=== PATIENT | male | born 1965 | race Caucasian/White ===

== ENCOUNTER 2018-01-22 07:28 | Emergency (ER) | payer OTHER ==
[~2018-01-22] VITALS: Ht 177.8 cm; Wt 83.9 kg
[2018-01-22 07:54] VITALS: BP 140/75
--- NOTE | 2018-01-22 07:58 | Emergency Room Report ---
History of Present Illness General Chief Complaint: Chest Pain Source: Patient, Medical Record Present Illness HPI Patient sense with complaints of vomiting Reports that he saw tinges of bright blood or the past several days also felt that he had dark stool Patient reports that he was at [facility] yesterday And blood work looked normal Patient reports that he has severe anxiety as well and after seeing the blood he becomes very anxious gets sweaty palms Patient reports that 2-3 weeks ago he had upper and lower endoscopy and colonoscopy He is still awaiting the results of those Does report of chest pain however the patient reports that maybe his epigastric discomfort and also the discomfort with vomiting denies any chest pain at this time Allergies: Coded Allergies: ATORVASTATIN (Verified Allergy, Unknown, 01/22/18) Patient History Past Medical History: see triage record Pertinent Family History: none Reviewed Nursing Documentation: PMH: Agreed; PSxH: Agreed Nursing Documentation-PMH Past Medical History: No History, Except For Hx Cardiac Problems: Yes - valve prolapse, low ejection fraction Hx Hypertension: Yes Hx COPD: Yes Hx Gastrointestinal Problems: Yes - GERD Review of Systems All Other Systems: negative except mentioned in HPI Physical Exam Vital Signs Date Time Temp Pulse Resp B/P (MAP) Pulse Ox O2 Delivery O2 Flow Rate FiO2 01/22/18 07:25 97.5 84 14 130/76 100 Room Air Sp02 EP Interpretation: reviewed, normal General Appearance: well appearing, no apparent distress Head: normocephalic, atraumatic Eyes: bilateral eye PERRL, bilateral eye EOMI ENT: hearing grossly normal, normal pharynx, TMs + canals normal, uvula midline Neck: full range of motion, supple, no meningismus, no bony tend Respiratory: lungs clear, normal breath sounds, no rhonchi, no respiratory distress, no retraction, no accessory muscle use Cardiovascular #1: normal peripheral pulses, regular rate, rhythm, no edema, no gallop, no JVD, no murmur Gastrointestinal: normal bowel sounds, non tender, soft, no mass, no organomegaly, non-distended, no guarding, no hernia, no pulsatile mass, no rebound Genitourinary: no CVA tenderness Musculoskeletal: normal inspection Neurologic: oriented x3, responsive, 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, motor strength/ tone normal, sensory intact Psychiatric: mood/affect normal Skin: normal color, no rash, warm/dry, palpation normal Lymphatic: normal inspection, no adenopathy Medical Decision Making Diagnostic Impression: Primary Impression: Chest pain ER Course Patient is a fairly complex patient with multiple differential to consideration including but not limited to cardiac cardiopulmonary and vascular emergencies Patient's complaints regarding vomiting also traces of blood are also concerning Patient's blood work here reveals appropriate hemoglobin count there has been no active signs of hemorrhage or bleeding Patient was encouraged highly to follow up with his primary physician/GI specialist who performed his procedure for further intervention and input Labs Test 01/22/18 07:45 White Blood Count 7.1 K/UL (4.8-10.8) Red Blood Count 5.80 M/UL (4.70-6.10) Hemoglobin 17.0 G/DL (14.2-18.0) Hematocrit 51.2 % (42.0-52.0) Mean Corpuscular Volume 88 FL (80-99) Mean Corpuscular Hemoglobin 29.2 PG (27.0-31.0) Mean Corpuscular Hemoglobin Concent 33.2 G/DL (32.0-36.0) Red Cell Distribution Width 11.3 % (11.6-14.8) Platelet Count 271 K/UL (150-450) Mean Platelet Volume 6.3 FL (6.5-10.1) Neutrophils (%) (Auto) 70.9 % (45.0-75.0) Lymphocytes (%) (Auto) 20.3 % (20.0-45.0) Monocytes (%) (Auto) 6.5 % (1.0-10.0) Eosinophils (%) (Auto) 1.0 % (0.0-3.0) Basophils (%) (Auto) 1.3 % (0.0-2.0) Sodium Level 138 MMOL/L (136-145) Potassium Level 4.2 MMOL/L (3.5-5.1) Chloride Level 103 MMOL/L (98-107) Carbon Dioxide Level 24 MMOL/L (21-32) Anion Gap 11 mmol/L (5-15) Blood Urea Nitrogen 11 mg/dL (7-18) Creatinine 0.9 MG/DL (0.55-1.30) Estimat Glomerular Filtration Rate > 60 mL/min (>60) Glucose Level 83 MG/DL (74-106) Calcium Level 8.9 MG/DL (8.5-10.1) Total Bilirubin 1.5 MG/DL (0.2-1.0) Direct Bilirubin 0.1 MG/DL (0.0-0.3) Aspartate Amino Transf (AST/SGOT) 61 U/L (15-37) Alanine Aminotransferase (ALT/SGPT) 32 U/L (12-78) Alkaline Phosphatase 64 U/L (46-116) Total Creatine Kinase 1321 U/L (26-308) Creatine Kinase MB 1.2 NG/ML (0.0-3.6) Creatine Kinase MB Relative Index 0.0 Troponin I 0.000 ng/mL (0.000-0.056) Pro-B-Type Natriuretic Peptide 17 pg/mL (0-125) Total Protein 8.1 G/DL (6.4-8.2) Albumin 4.0 G/DL (3.4-5.0) Globulin 4.1 g/dL Albumin/Globulin Ratio 1.0 (1.0-2.7) EKG Diagnostic Results Rate: normal Rhythm: NSR ST Segments: no acute changes Rhythm Strip Diag. Results EP Interpretation: yes Rate: 66 Rhythm: NSR, no PVC's, no ectopy Chest X-Ray Diagnostic Results Chest X-Ray Diagnostic Results : Chest X-Ray Ordered: Yes # of Views/Limited/Complete: 1 View Indication: Chest Pain EP Interpretation: Yes Interpretation: no consolidation, no effusion, no pneumothorax Impression: No acute disease Electronically Signed by: Elayne Casey DO Last Vital Signs Date Time Temp Pulse Resp B/P (MAP) Pulse Ox O2 Delivery O2 Flow Rate FiO2 01/22/18 07:25 97.5 84 14 130/76 100 Room Air Status: improved Disposition: HOME, SELF-CARE Condition: Improved Additional Instructions: Patient is provided with the discharge instructions notified to follow up with primary doctor in the next 2-3 days otherwise return to the er with any worsening symptoms. Please note that this report is being documented using [employer] technology. This can lead to erroneous entry secondary to incorrect interpretation by the dictating instrument. Elayne Casey DO Jan 22, 2018 07:58
[2018-01-22 08:07] LABS: BASOPHILS % (AUTO) 1.3 % (0.0-2.0); HEMATOCRIT 51.2 % (42.0-52.0); LYMPHOCYTES % (AUTO) 20.3 % (20.0-45.0); MEAN CORPUSCULAR VOLUME 88 FL (80-99); MONOCYTES % (AUTO) 6.5 % (1.0-10.0); NEUTROPHILS % (AUTO) 70.9 % (45.0-75.0); PLATELET COUNT 271 K/UL (150-450); RED CELL DISTRIBUTION WIDTH 11.3 % (11.6-14.8); WHITE BLOOD COUNT 7.1 K/UL (4.8-10.8)
[2018-01-22 08:26] LABS: ANION GAP 11 mmol/L (5-15); BLOOD UREA NITROGEN 11 mg/dL (7-18); CALCIUM 8.9 MG/DL (8.5-10.1); CARBON DIOXIDE 24 MMOL/L (21-32); CHLORIDE 103 MMOL/L (98-107); CREATININE 0.9 MG/DL (0.55-1.30); POTASSIUM 4.2 MMOL/L (3.5-5.1); SODIUM 138 MMOL/L (136-145)
[2018-01-22 08:38] LABS: ALANINE AMINOTRANSFERASE 32 U/L (12-78); ALKALINE PHOSPHATASE 64 U/L (46-116); ASPARTATE AMINO TRANSFERASE 61 U/L (15-37); BILIRUBIN,TOTAL 1.5 MG/DL (0.2-1.0); CKMB 1.2 NG/ML (0.0-3.6); CREATINE KINASE 1321 U/L (26-308)
[2018-01-22 08:39] LABS: BILIRUBIN,DIRECT 0.1 MG/DL (0.0-0.3)
[2018-01-22 09:15] VITALS: BP 132/91
[2018-01-22 09:16] VITALS: BP 132/91
--- NOTE | 2018-01-22 09:30 | Diagnostic Imaging Report ---
Indication: Chest pain Technique: One view of the chest Comparison: none Findings: Lungs and pleural spaces are clear. Heart size is normal. Aorta is somewhat elongated and tortuous Impression: No acute process
== END 2018-01-22 09:16 | disposition home or self-care (01) ==
LOC: EDBD 07:28 → EMR 08:44
DX: R07.9 Chest pain, unspecified (principal); I10 Essential (primary) hypertension; J44.9 Chronic obstructive pulmonary disease, unspecified; K21.9 Gastro-esophageal reflux disease without esophagitis; Z88.8 Allergy status to other drugs, medicaments and biological substances
CPT/HCPCS: 36415; 71045; 80053; 82248; 82550; 82553; 83880; 84484; 85025; 93005; 99283

== ENCOUNTER 2018-01-27 10:45 | Emergency (ER) | payer OTHER ==
[~2018-01-27] VITALS: Ht 177.8 cm; Wt 83.9 kg
[2018-01-27] MEDS ORDERED: LISINOPRIL2.5 MG ORAL (10:58)
[2018-01-27] MEDS ORDERED: METOPROLOL TART25 MG ORAL (10:58)
[2018-01-27 11:00] VITALS: BP 148/102
[2018-01-27] MEDS ORDERED: Isovue-370 150ml vial INJ PRN (11:45)
[2018-01-27 12:12] LABS: BASOPHILS % (AUTO) 0.9 % (0.0-2.0); EOSINOPHILS % (AUTO) 0.3 % (0.0-3.0); HEMATOCRIT 46.2 % (42.0-52.0); HEMOGLOBIN 15.6 G/DL (14.2-18.0); LYMPHOCYTES % (AUTO) 18.7 % (20.0-45.0); MEAN CORPUSCULAR VOLUME 89 FL (80-99); MONOCYTES % (AUTO) 5.5 % (1.0-10.0); NEUTROPHILS % (AUTO) 74.5 % (45.0-75.0); PLATELET COUNT 293 K/UL (150-450); RED CELL DISTRIBUTION WIDTH 11.4 % (11.6-14.8); WHITE BLOOD COUNT 8.7 K/UL (4.8-10.8)
[2018-01-27 12:20] LABS: ANION GAP 7 mmol/L (5-15); BLOOD UREA NITROGEN 15 mg/dL (7-18); CALCIUM 9.2 MG/DL (8.5-10.1); CARBON DIOXIDE 30 MMOL/L (21-32); CHLORIDE 102 MMOL/L (98-107); POTASSIUM 3.9 MMOL/L (3.5-5.1); SODIUM 139 MMOL/L (136-145)
[2018-01-27 12:25] LABS: ALANINE AMINOTRANSFERASE 24 U/L (12-78); ALBUMIN 4.4 G/DL (3.4-5.0); ALBUMIN/GLOBULIN RATIO 1.1 (1.0-2.7); ALKALINE PHOSPHATASE 59 U/L (46-116); ASPARTATE AMINO TRANSFERASE 18 U/L (15-37); BILIRUBIN,TOTAL 0.9 MG/DL (0.2-1.0)
[2018-01-27] MEDS ORDERED: Solu-MEDROL 125mg Inj IVP ONE (12:45)
[2018-01-27] MEDS ORDERED: DiphenhydrAMINE 50mg/ml Inj IVP ONE (12:45)
[2018-01-27] MEDS ORDERED: ATIVAN0.5 MG ORAL (14:32)
[2018-01-27 14:37] VITALS: BP 131/80
--- NOTE | 2018-01-27 14:38 | Diagnostic Imaging Report ---
ndication: Chest pain, difficulty swallowing Technique: IV administration nonionic contrast. Spiral acquisitions obtained from the lung apices to the basis per dissection protocol. Multiplanar and 3-D reconstructions were generated. Total dose length product 960.34 mGycm. CTDIvol(s) 19.82 mGy. Dose reduction achieved using automated exposure control Comparison: none Findings: The thoracic aorta is normal in caliber. There is no evidence of dissection or aneurysm. There is normal and classic branching anatomy of the great neck vessels, which are normal in caliber. Exam was not protocoled for evaluation of pulmonary emboli. However, the pulmonary arteries are well opacified, and no filling defects or other findings to suggest acute pulmonary embolus are evident. No pulmonary arterial dilatation. No right ventricular dilatation. The heart size is normal. The visualized upper abdominal visceral vessels are normal in caliber Small focus of pleural thickening is seen along the minor fissure, image 46 series 8. There are posterior dependent atelectatic changes bilaterally. The lungs are otherwise clear. No infiltrates, effusions, masses, nodules, or congestion demonstrated. No pericardial effusion is demonstrated. No mediastinal or hilar mass or adenopathy demonstrated. The included portions of the thyroid are unremarkable. The esophagus is unremarkable. The bones are unremarkable. Included upper abdominal viscera are unremarkable except for a tiny subcentimeter low-attenuation lesion coming off of the upper pole of the left kidney. Impression: Negative for acute aortic dissection, aneurysm, or other acute thoracic pathology Incidental findings as noted, including subcentimeter low-attenuation left upper pole renal lesion (likely cyst), focal pleural thickening along the minor fissure on the right The CT scanner at [facility] is accredited by the [employer] and the scans are performed using protocols designed to limit radiation exposure to as low as reasonably achievable to attain images of sufficient resolution adequate for diagnostic evaluation.
[2018-01-27 14:52] VITALS: BP 131/80
[2018-01-27] MEDS ORDERED: Lidocaine 2% Visc 15ml soln ORAL ONE (15:00)
--- NOTE | 2018-01-28 16:37 | Cardiology Report ---
APPROVED REPORT EKG Measurement Heart [id number] Normal sinus rhythm Normal ECG
--- NOTE | 2018-01-31 15:30 | Emergency Room Report ---
History of Present Illness General Chief Complaint: Upper Respiratory Illness Source: Patient Present Illness HPI Patient 52-year-old male who presented after increased discomfort during swallowing. The patient reports having increased difficulty with the passing saliva. He denies any recent fever. He reports having increased loss of voice. He had recent chest x-ray imaging which showed evidence of tortuous aorta. He reports having prior history of methamphetamine abuse but denies any current use. The patient states that he had been having some discomfort to the chest. This did not radiate.He denies any black or bloody stools. He denies any leg pain or swelling. He reports having increased difficulty with back pain. He states that he has some chronic pain issues to his back. The patient denies any fever. He denies any numbness or weakness Allergies: Coded Allergies: ATORVASTATIN (Verified Allergy, Unknown, 01/27/18) Uncoded Allergies: IV CONTRAST (Allergy, Severe, rash, 01/27/18) Patient History Past Medical History: see triage record Reviewed Nursing Documentation: PMH: Agreed; PSxH: Agreed Nursing Documentation-PMH Past Medical History: No History, Except For Hx Cardiac Problems: Yes - valve prolapse, low ejection fraction Hx Hypertension: Yes Hx COPD: Yes Hx Gastrointestinal Problems: Yes - GERD Review of Systems All Other Systems: negative except mentioned in HPI Physical Exam Vital Signs Date Time Temp Pulse Resp B/P (MAP) Pulse Ox O2 Delivery O2 Flow Rate FiO2 01/27/18 10:51 97.2 67 14 148/102 100 Room Air 01/27/18 11:00 98 General Appearance: well appearing, no apparent distress, alert, GCS 15, non- toxic Head: normocephalic, atraumatic ENT: hearing grossly normal, normal voice Neck: full range of motion, supple Respiratory: no respiratory distress, speaking full sentences Cardiovascular #1: normal inspection, regular rate, rhythm Gastrointestinal: normal inspection, normal bowel sounds, non tender, soft Musculoskeletal: normal inspection, no calf tenderness Neurologic: normal gait Psychiatric: mood/affect normal Skin: no rash Medical Decision Making Diagnostic Impression: Primary Impression: Achalasia, esophageal ER Course Patient presented for chest pain. Differential diagnosis included but was not limited to acute coronary syndrome, pulmonary embolism, pneumonia, aortic dissection, shingles, pneumothorax, aortic dissection, esophageal rupture, pericarditis. Because of complexity of patient's case laboratory testing and imaging studies were ordered. CT imaging of the chest read by radiology showed no evidence of aortic dissection or pulmonary embolism. Patient was noted to have some lung nodules on prior CTs per patient. The patient states he's had previous endoscopy in the past. The patient was advised outpatient GI workup. The patient appears to be able to tolerate his saliva.The patient is advised to follow up with primary care doctor in next few days. Patient is advised to return if any worsening condition or if any changes in status that are concerning. This report is dictated with [employer] pain coordinator software which may occasionally lead to discrepancies related to use of this software. Labs Test 01/27/18 11:48 01/27/18 12:44 White Blood Count 8.7 K/UL (4.8-10.8) Red Blood Count 5.20 M/UL (4.70-6.10) Hemoglobin 15.6 G/DL (14.2-18.0) Hematocrit 46.2 % (42.0-52.0) Mean Corpuscular Volume 89 FL (80-99) Mean Corpuscular Hemoglobin 30.0 PG (27.0-31.0) Mean Corpuscular Hemoglobin Concent 33.7 G/DL (32.0-36.0) Red Cell Distribution Width 11.4 % (11.6-14.8) Platelet Count 293 K/UL (150-450) Mean Platelet Volume 6.6 FL (6.5-10.1) Neutrophils (%) (Auto) 74.5 % (45.0-75.0) Lymphocytes (%) (Auto) 18.7 % (20.0-45.0) Monocytes (%) (Auto) 5.5 % (1.0-10.0) Eosinophils (%) (Auto) 0.3 % (0.0-3.0) Basophils (%) (Auto) 0.9 % (0.0-2.0) Prothrombin Time 10.6 SEC (9.30-11.50) Prothromb Time International Ratio 1.0 (0.9-1.1) Activated Partial Thromboplast Time 26 SEC (23-33) Sodium Level 139 MMOL/L (136-145) Potassium Level 3.9 MMOL/L (3.5-5.1) Chloride Level 102 MMOL/L (98-107) Carbon Dioxide Level 30 MMOL/L (21-32) Anion Gap 7 mmol/L (5-15) Blood Urea Nitrogen 15 mg/dL (7-18) Creatinine 1.0 MG/DL (0.55-1.30) Estimat Glomerular Filtration Rate > 60 mL/min (>60) Glucose Level 93 MG/DL (74-106) Calcium Level 9.2 MG/DL (8.5-10.1) Total Bilirubin 0.9 MG/DL (0.2-1.0) Aspartate Amino Transf (AST/SGOT) 18 U/L (15-37) Alanine Aminotransferase (ALT/SGPT) 24 U/L (12-78) Alkaline Phosphatase 59 U/L (46-116) Total Protein 8.4 G/DL (6.4-8.2) Albumin 4.4 G/DL (3.4-5.0) Globulin 4.0 g/dL Albumin/Globulin Ratio 1.1 (1.0-2.7) Urine Opiates Screen Negative (NEGATIVE) Urine Barbiturates Screen Negative (NEGATIVE) Phencyclidine (PCP) Screen Negative (NEGATIVE) Urine Amphetamines Screen Negative (NEGATIVE) Urine Benzodiazepines Screen Negative (NEGATIVE) Urine Cocaine Screen Negative (NEGATIVE) Urine Marijuana (THC) Screen Negative (NEGATIVE) Last Vital Signs Date Time Temp Pulse Resp B/P (MAP) Pulse Ox O2 Delivery O2 Flow Rate FiO2 01/27/18 14:52 97.2 71 16 131/80 98 Room Air 98 Status: improved Disposition: HOME, SELF-CARE Condition: Stable Scripts Lorazepam* (ATIVAN*) 0.5 Mg Tablet 0.5 MG ORAL DAILY, #5 TAB Prov: Ulises Gonzalez MD 01/27/18 Patient Instructions: Ulises Mary MD Jan 31, 2018 15:30
== END 2018-01-27 14:52 | disposition home or self-care (01) ==
LOC: EMR 12:00
DX: K22.0 Achalasia of cardia (principal); K21.9 Gastro-esophageal reflux disease without esophagitis; I10 Essential (primary) hypertension; J44.9 Chronic obstructive pulmonary disease, unspecified; Z88.8 Allergy status to other drugs, medicaments and biological substances; Z91.041 Radiographic dye allergy status
CPT/HCPCS: 36415; 71275; 80053; 80307; 85025; 85610; 85730; 86850; 86900; 86901; 93005; 96374; 96375; 99284; J1200; J2930; Q9967